=== PATIENT | female | born 1980 | race Native Hawaiian/Other Pacific Islander ===

== ENCOUNTER 2020-08-13 13:44 | Emergency (ER) | payer OTHER ==
[~2020-08-13] VITALS: Ht 177.8 cm; Wt 142.4 kg
[2020-08-13 14:01] VITALS: BP 165/86; Ht 177.8 cm; Wt 142.4 kg
[2020-08-13 17:00] LABS: microscopic required? YES; urine erythrocyte NEGATIVE (NEGATIVE)
== END 2020-08-13 17:21 | disposition left against medical advice (07) ==
LOC: ED 13:44
DX: R10.13 Epigastric pain (principal); R11.0 Nausea; R30.0 Dysuria